=== PATIENT | male | born 1995 | race Hispanic/Latino ===

== ENCOUNTER 2016-10-27 13:22 | Emergency (ER) | payer MEDICAID, OTHER ==
[2016-10-27 14:31] VITALS: BP 145/80; PULSE 61; RESP 20; TEMP 97.8; O2SAT 98
--- NOTE | 2016-10-27 14:56 | C.PDOC ---
History Of Present Illness 21 yr old male w/o significant PMHx presents to the ER with complaints of intermittent headache for the past 3 weeks, associated with "foggy brain" and unable to concentrate. Patient reports, headache is bend-like, " light". Patient denies fever, chills, denies worse headache of life, visual changes, focal defiicts,weakness, night sweats or weight loss, neck pain, sore throat, chest pain, SOB, palpitation, abd. pain, nausea, vomiting, diarrhea, denies any other active complaints. Ambulate to ED, at present time admits is asymptomatic. Pt denies drug use. Denies significant Family Hx. Time Seen by Provider: 10/27/16 14:35 Chief Complaint (Nursing): Headache History Per: Patient History/Exam Limitations: no limitations Onset/Duration Of Symptoms: Intermittent Episodes (3 weeks) Past Medical History Reviewed: Historical Data, Nursing Documentation, Vital Signs Vital Signs: Last Vital Signs Temp 97.8 F 10/27/16 14:28 Pulse 61 10/27/16 14:28 Resp 20 10/27/16 14:28 BP 145/80 10/27/16 14:28 Pulse Ox 98 10/27/16 15:27 Family History: States: No Known Family Hx - Social History Hx Alcohol Use: No Hx Substance Use: Yes (LAST USE A LITTLE WHILE AGO) - Immunization History Hx Tetanus Toxoid Vaccination: Yes Hx Influenza Vaccination: Yes Hx Pneumococcal Vaccination: Yes Review Of Systems Except As Marked, All Systems Reviewed And Found Negative. Constitutional: Negative for: Fever, Chills Eyes: Negative for: Vision Change Cardiovascular: Negative for: Chest Pain Respiratory: Negative for: Shortness of Breath Gastrointestinal: Negative for: Nausea, Vomiting Neurological: Positive for: Headache (intermittent ). Negative for: Weakness, Numbness Physical Exam - Physical Exam Appears: Well, Non-toxic, No Acute Distress Skin: Warm, Dry, No Rash Head: Atraumatic, Normacephalic Eye(s): bilateral: Normal Inspection, PERRL, EOMI Ear(s): Bilateral: Normal Nose: Normal Oral Mucosa: Moist Throat: Normal, No Erythema, No Exudate, No Drooling Neck: Normal, Normal ROM, Supple Chest: Symmetrical, No Tenderness Cardiovascular: Rhythm Regular, No Murmur Respiratory: Normal Breath Sounds, No Rales, No Rhonchi, No Stridor, No Wheezing Gastrointestinal/Abdominal: Normal Exam, Soft, No Tenderness, No Guarding, No Rebound Extremity: Normal ROM, No Pedal Edema, No Swelling Neurological/Psych: Oriented x3, Normal Speech, Normal Cognition, Normal Motor, Normal Sensation, Normal Reflexes ED Course And Treatment O2 Sat by Pulse Oximetry: 98 Pulse Ox Interpretation: Normal Progress Note: On re-eavluation, pt is afebrile, hemodynamicaly stable. non- toxic. PulseOx 98% RA. Head: AT/NC. Neck: (-) meningeal sign. ENt: no acute finidngs. neurologicaly intact. Pt advised and ref. to F/u with PMD, Neurology in 2-3 days for re-eval. return if any worsening or new changes. Disposition Counseled Patient/Family Regarding: Diagnosis, Need For Followup - Disposition Referrals: Isrrael Bee MD [Staff Provider] - Disposition: HOME/ ROUTINE Disposition Time: 14:20 Condition: STABLE Additional Instructions: Encourage fluids Tylenol for headache as need Follow up with PMD in 2-3 days for re-evaluation and further testing. Return to ED if any worsening or new changes. Instructions: General Headache (ED) - Clinical Impression Clinical Impression: Headache - PA / [employer] / Resident Statement MD/DO has reviewed & agrees with the documentation as recorded. - Scribe Statement The provider has reviewed the documentation as recorded by the Scribe Tatum Butterfield All medical record entries made by the Scribe were at my direction and personally dictated by me. I have reviewed the chart and agree that the record accurately reflects my personal performance of the history, physical exam, medical decision making, and the department course for this patient. I have also personally directed, reviewed, and agree with the discharge instructions and disposition.
== END 2016-10-27 15:03 | disposition home or self-care (01) ==
LOC: C.ER 13:22
DX: R51 Headache (principal)